=== PATIENT | female | born 1975 | race Caucasian/White ===

== ENCOUNTER 2018-09-24 15:33 | Emergency (ER) | payer MEDICAID ==
[~2018-09-24] VITALS: Ht 170.2 cm; Wt 75.0 kg
--- NOTE | 2018-09-24 15:48 | NUR ---
NIL WHEN CALLED FOR TRIAGE. FRIEND STATES "IN BATHROOM"
[2018-09-24 15:55] VITALS: BP 138/95
[2018-09-24] MEDS ORDERED: KETOROLAC 30 MG/1 ML ONE (16:44)
--- NOTE | 2018-09-24 16:51 | NUR ---
Patient/Caregiver given discharge instructions and they have confirmed that they understand the instructions. Patient ambulatory with steady gait.
[2018-09-24] MEDS ORDERED: KETOROLAC 30 MG/1 ML IM ONE (17:00)
== END 2018-09-24 16:52 | disposition home or self-care (01) ==
LOC: ED 16:50
DX: S20.212A Contusion of left front wall of thorax, initial encounter (principal); B34.9 Viral infection, unspecified; Z90.49 Acquired absence of other specified parts of digestive tract; W01.0XXA Fall on same level from slipping, tripping and stumbling without subsequent striking against object, initial encounter; Y93.89 Activity, other specified; Y92.89 Other specified places as the place of occurrence of the external cause; Y99.8 Other external cause status
CPT/HCPCS: 71101; 96372; 99283; J1885